=== PATIENT | male | born 1970 | race Caucasian/White ===

== ENCOUNTER 2019-10-22 11:09 | Outpatient (CLI) | payer OTHER | END 2019-10-22 15:00 | disposition home or self-care (01) | LOC: LAB 11:09 | PROVIDERS: ATTEND Orthopaedic Surgery | DX: R05 Cough (principal); Z20.828 Contact with and (suspected) exposure to other viral communicable diseases; R06.2 Wheezing; Z03.818 Encounter for observation for suspected exposure to other biological agents ruled out ==

== ENCOUNTER 2022-09-07 12:53 | Inpatient (IN) | payer OTHER ==
[~2022-09-07] VITALS: Ht 165.1 cm; Wt 83.9 kg
[2022-09-07] MEDS ORDERED: ATORVASTATIN CA10 MG PO (13:08)
[2022-09-07] MEDS ORDERED: ADULT LOW DOSE81 M1 PO (13:08)
== END 2022-09-08 13:21 | disposition home or self-care (01) | DRG 343 ==
LOC: ER 12:53 → SURH 19:30
PROVIDERS: Surgery; ADMIT Internal Medicine; ATTEND Internal Medicine
PROC: BW21YZZ Computerized Tomography (CT Scan) of Abdomen and Pelvis using Other Contrast (ICD-10-PCS; 2022-09-07)
PROC: 0DTJ4ZZ Resection of Appendix, Percutaneous Endoscopic Approach (ICD-10-PCS; principal; 2022-09-07 20:00)
DX: K35.30 Acute appendicitis with localized peritonitis, without perforation or gangrene (principal); Z20.822 Contact with and (suspected) exposure to COVID-19